=== PATIENT | male | born 2000 | race Caucasian/White ===

== ENCOUNTER 2019-06-07 13:43 | Inpatient (IN) ==
[2019-06-07] MEDS ORDERED: ZOFRAN IM ONE (14:44)
[2019-06-07] MEDS ORDERED: NS 1,000 ML IV ONE ×2 (14:44→16:32)
--- NOTE | 2019-06-07 14:44 | PROVIDER DOCUMENTATION ---
HPI-Musculoskeletal Pain/Inj - GENERAL Chief Complaint: Extremity Injury Stated Complaint: EDEMA/LT LEG Time Seen by Provider: 06/07/19 14:34 Source: patient, family - HX OF PRESENT ILLNESS-MUSKULOSKELTAL Nature of Presenting Problem: 18 YO male presents with left knee pain and fever x 2 days. Pt states 8 days ago he fell on a rock on his left knee. Had a puncture wound which he kept clean and dry. He noticed increasing redness and pain and 2 days ago went to the hospital after he noticed it wasn't getting better. He was started on Cipro and Clindamycin. He states he was unable to take any antibiotics today due to his stomach being upset. He has had fever and chills x 2 days. His last tetanus shot was 3 years ago when he injured his hand. Pain scale 8/10 currently, throbbing pain. Allergy to lidocaine. Quality of Pain: reports: aching Severity in ED: moderate Onset/Duration: last week Timing: still present Modifying Factors: improves with: nothing. worse with: other medication Any recent injury?: Yes Locality of Occurance: Home Similar Symptoms Previously?: No Recently seen or treated by another doctor?: Yes (went to the hospital, started on PO clinda and cipro) Review of Systems - Adult - REVIEW OF SYSTEMS - ADULT Constitutional: reports: see HPI, chills, fever, fatique Eyes: reports: no symptoms reported Ears, Nose, Mouth & Throat: reports: no symptoms reported Cardiovascular: reports: no symptoms reported Respiratory: reports: no symptoms reported Gastrointestinal: reports: see HPI, abdominal pain, nausea, poor appetite Genitourinary: reports: no symptoms reported Musculoskeletal: reports: see HPI, joint pain, joint swelling Integumentary: reports: see HPI Psychiatric: reports: no symptoms reported Endocrine: reports: no symptoms reported Hematologic/Lymphatic: reports: no symptoms reported Allergic/Immunologic: reports: no symptoms reported Past History - Adult - PAST MEDICAL HISTORY-ADULT Review of Records: reports: Old Records Reviewed, Nursing Assessment Review, Medications Reviewed, Social history reviewed & non-contributory. Major Childhood Illnesses: reports: denies history Cardiovascular: reports: denies history Respiratory: reports: denies history Gastrointestinal: reports: denies history Obstetrical/Gynecological: reports: denies history Genitourinary: reports: denies history Musculoskeletal: reports: denies history Neurological: reports: denies history Psychiatric: reports: denies history Endocrine/Immune: reports: denies history Other Conditions: reports: denies history - IMMUNIZATION STATUS Childhood Immunizations: See Nurse Assessment Flu Vaccine: See Nurse Assessment - FAMILY HISTORY Family History: reviewed, not pertinent Physical Exam-Injury Related - Physical Exam-Injury Related Initial Vital Signs Reviewed: Yes (tachycardic and febrile) General Appearance: mild distress (appears ill) Eyes: PERRL/EOMI, pink conjunctivae Head, Ears, Nose, Mouth & Throat: normocephalic/atraumatic, moist mucous membranes Neck: non-tender, full range of motion, supple, normal inspection Respiratory: chest non-tender, lungs clear, normal breath sounds, no respiratory distress Cardiovascular: normal peripheral pulses, tachycardia Peripheral Pulses: dorsalis-pedis (R): 2+, dorsalis-pedis (L): 2+ Abdominal Exam: normal bowel sounds, non tender, soft Extremity: normal range of motion, erythema, inflammation, swelling, tenderness (left knee with 1.5 cm laceration to patellar region with erythema surrounding knee, warm to touch) Integumentary: erythema (of left knee), swelling, tenderness, warm Neurologic: grossly normal Psych/Mental Status: normal mood/affect Progress - PLAN OF CARE/RESULTS Progress/Plan/Lab Results: left knee cellulitis, tachycardia, fever Result Diagrams: 06/07/19 14:30 06/07/19 14:30 - REASSESSMENT Reassessment #1 Time Reassessed: 16:30 Status: unchanged (left knee cellulitis, pt received rocephin, waiting on vanc. pt remains tachycardic s/p 1 L fluids, will give another liter. Pt accepted by hospitalist, Dr. Owens. Pt states still in pain, will give another dose of morphine plus tylenol PO.) - XRAY 1 XRAY: Left XRAY Study: Knee (EXAM: KNEE 1-2 VIEWS-LEFT 06/07/2019 HISTORY: left knee injury/puncture wound TECHNIQUE: Left knee two views COMMENT: There is soft tissue swelling superficially on the lateral aspect of the knee. There is no evidence of acute fracture or dislocation. There is also soft tissue swelling anterior to the patella. IMPRESSION: Soft tissue swelling. No evidence of acute bony disease. No evidence of radiopaque foreign body. Electronically signed by Young Mckeon 06/07/2019 3:44 PM) - CONSULTS/PCP/HOSPITALIST Notification Time Discussed: 16:33 Consult Disposition: Will see in ED (Accepted by Dr. Owens) Departure - Departure Date of Disposition Decision: 06/07/19 Time of Disposition Decision: 16:34 DIAGNOSIS: Cellulitis of left knee, Tachycardia, Fever and chills, Left knee injury Disposition: ADMITTED INPATIENT 09 Certified Medical Emergency: Emergent Condition: Fair - Critical Care Note This patient required my direct & personal management of CC.: No Attestation - Physician/ FADY Attestation The physician spent face to face time with patient:: Yes Advanced Practice Provider documentation review:: Supervising physician onsite a nd consulted in the evaluation and care of this patient. The physician did have a face to face encounter with the patient.
[2019-06-07] MEDS ORDERED: MORPHINE IV ONE ×2 (14:45→16:32)
[2019-06-07] MEDS ORDERED: ROCEPHIN 2 GM in NS 50 ML IV ONE (14:59)
[2019-06-07] MEDS ORDERED: VANCOMYCIN IV PER PHARMACY MISC SCH (15:00)
[2019-06-07 15:26] LABS: BASO# 0.01 X1000 (0.0-0.2); BASO% 0.1 % (0.0-0.8); EOS# 0.01 X1000 (0.0-0.7); EOS% 0.1 % (0.0-10.0); HEMATOCRIT 37.2 % (42.0-52.0); HEMOGLOBIN 12.7 g/dL (14.0-18.0); LYMPH# 0.78 X1000 (1.2-3.4); LYMPH% 5.2 % (20.5-51.1); MCH 28.5 PG (27-31); MCHC 34.1 g/dL (33-37); MCV 83.6 FL (81-99); MONO# 0.83 X1000 (0.11-0.59); MONO% 5.5 % (1.7-9.3); MPV 9.8 FL (7.4-10.4); NEUT# 13.49 X1000 (1.4-6.5); NEUT% 89.1 % (42.2-75.2); PLT 327 X1000 (130-400); RBC 4.45 XMIL (4.7-6.1); RDW 11.9 % (11.5-14.5); WBC 15.12 X1000 (4.8-10.8)
--- NOTE | 2019-06-07 15:47 | Diag Imaging Result Doc PS360 ---
EXAM: KNEE 1-2 VIEWS-LEFT 06/07/2019 HISTORY: left knee injury/puncture wound TECHNIQUE: Left knee two views COMMENT: There is soft tissue swelling superficially on the lateral aspect of the knee. There is no evidence of acute fracture or dislocation. There is also soft tissue swelling anterior to the patella. IMPRESSION: Soft tissue swelling. No evidence of acute bony disease. No evidence of radiopaque foreign body. Electronically signed by Young Mckeon 06/07/2019 3:44 PM
[2019-06-07 15:49] LABS: AGAP 12; ALB/GLOB RATIO 1.3; ALKALINE PHOSPHATASE 110 U/L (32-122); BUN 9 mg/dL (8-22); CALCIUM 9.4 mg/dL (8.8-10.2); CHLORIDE 92 mmol/L (98-107); COSMO 259; CREATININE 1.1 mg/dL (0.7-1.2); ESTIMATED GFR > 60; GLUCOSE 95 mg/dL (70-104); GOT 21 U/L (10-34); GPT 29 U/L (10-44); POTASSIUM 3.7 mmol/L (3.5-5.1); SODIUM 130 mmol/L (136-145); TCO2 26 mmol/L (25-35); TOTAL BILIRUBIN 0.95 mg/dL (0.20-1.00); TOTAL PROTEIN 7.1 g/dL (6.3-8.3)
[2019-06-07 16:23] LABS: INR 1.14; PROTIME 14.8 Seconds (11.0-16.0)
[2019-06-07] MEDS ORDERED: TYLENOL PO ONE (16:32)
[2019-06-07] MEDS: VANCOMYCIN 2,150 MG in NS 500 ML IV ONE ×2 (17:23→18:30)
--- NOTE | 2019-06-07 17:46 | HISTORY AND PHYSICAL ---
PRIMARY CARE PHYSICIAN: Dr. Mcghee. CHIEF COMPLAINT: Left knee pain with fever and chills for the past 2 days, has progressively worsened despite being on antibiotics of Cipro and clindamycin. HISTORY OF PRESENTING ILLNESS: This is a 18-year-old male who presents to [facility] with complaints of left knee pain with fever and chills for the past 2 days that has progressively worsened. States that approximately 8 days ago he was outside and fell on a rock and obtained a puncture wound to his left knee. He was seen in the emergency room about 2 days ago and placed on Cipro and clindamycin, but continued to worsen despite that. So, when he arrived to the emergency room today he had a fever of 103. He had a puncture to the left outer knee with warmth, edema, and some erythema. So he will be admitted for further evaluation and treatment for failed outpatient treatment. PAST MEDICAL HISTORY: None. PAST SURGICAL HISTORY: None. FAMILY HISTORY: Reviewed and noncontributory. SOCIAL HISTORY: He currently lives with family. Denies any tobacco, alcohol or illicit drug use. ALLERGIES: Lidocaine. HOME MEDICATIONS: He does not take any medications on a routine basis, but he was taking the Cipro and clindamycin p.o., that will be held at this time. LABORATORY DATA: Showed a white blood cell count of 15.12, hemoglobin 12.7, hematocrit 37.2, platelets of 327,000. PT and INR of 14.8 and 1.14. Sodium of 130, potassium 3.7, chloride 92, CO2 26, BUN of 9, creatinine 1.1, glucose 95. Plasma lactate was 1.3. X-ray of left knee showed soft tissue swelling. No evidence of acute bony disease. No evidence of radiopaque foreign body. REVIEW OF SYSTEMS: He was positive for fever, chills. Denied any blurred vision, dizziness, chest pain, coughing, shortness of breath. Denied any abdominal pain, constipation, diarrhea, burning or hurting with urination. He did have pain to his left knee with movement, erythema, edema, warmth to touch. PHYSICAL EXAMINATION: VITAL SIGNS: On arrival he had a temperature of 103 degrees, pulse 124, respirations 22, blood pressure 132/70, saturating 100% on room air. GENERAL: This is a 18-year-old male who is lying in the bed and answers questions appropriately. HENT: Normocephalic, atraumatic. Normal ENT inspection. Oropharynx and nares are clear. EYES: Pupils are equal, round, reactive to light and accommodation. Extraocular movements are intact. NECK: Normal inspection. Normal range of motion. LUNGS: Clear to auscultation bilaterally with equal lung expansion and chest wall movement. HEART: With regular rate and rhythm. No murmurs, rubs, or gallops. ABDOMEN: Soft, nontender, nondistended. Bowel sounds are present x4 quadrants. MUSCULOSKELETAL: He has 5/5 strength x4 extremities. He is noted on his left knee to have a puncture wound about 1.5 cm to the patellar region with surrounding erythema, edema, and warmth to touch down to the middle part of his left gay. NEUROLOGICAL: The cranial nerves 2-12 appear grossly intact. ASSESSMENT: 1. Left knee cellulitis with failed outpatient treatment. 2. Leukocytosis. 3. Hyponatremia. 4. Fever. 5. Tachycardia. 6. Sepsis. PLAN: He will be admitted to the surgical unit placed, held NPO, and placed on vancomycin per pharmacy protocol. We will consult Orthopedics. We will recheck a CBC, BMP in the a.m. We will place him on normal saline at 75 mL an hour. Further orders after seen by attending and data warehouse consultant. Dictated by JORGE Mcgrath for Diogenes Carroll MD cc: JORGE Mcgrath MD David Francis, MD
--- NOTE | 2019-06-07 18:05 | HISTORY AND PHYSICAL ---
CHIEF COMPLAINT: Increasing pain and swelling in his leg. This is a 18-year-old male, no medical problems, who came in for evaluation. He had swelling 8 days ago. He has been on Keflex, but has not improved. There is also stating that he had been on Cipro, but he had been on a decent dose of clindamycin 300 q.6 h., but worsening pain, swelling. I am afraid at this time he may have some septic arthritis. His puncture wound is right below his patella., As far as we can tell, there is not any clear abscess and he has drainage that is serosanguineous. That has been cultured. We will place on broad-spectrum antibiotics, vancomycin, Zosyn. Rule out DVT. Get some imaging and an orthopedic evaluation because he may need treatment. Treat with sepsis protocol and follow. This is a [id number] encounter note with Melissa Vazquez. cc: Diogenes Carroll MD MTDD
--- NOTE | 2019-06-07 18:54 | Diag Imaging Result Doc PS360 ---
EXAM: CT EXT LOWER LEFT W/CON 06/07/2019 HISTORY: swelling /r/ro abscess/foreign body TECHNIQUE: This exam was performed using automated exposure control, adjustment of mA or kV according to patient size, and/or use of iterative reconstruction technique. COMMENT: There is skin thickening and superficial soft tissue swelling primarily over the anterior knee and lower leg. There is some enhancement around the fluid collection anterior to the patella and patellar tendon. This measures 9 x 51 x 43 mm. This may represent an abscess. There are no air bubbles. No radiopaque foreign bodies are demonstrated. IMPRESSION: Superficial soft tissue swelling and edema, possible cellulitis in the left leg with seroma or abscess anterior to the patella. Electronically signed by Young Mckeon 06/07/2019 6:51 PM
[2019-06-07] MEDS: ZOSYN 3.375 GM in NS 50 ML IV SCH (21:18)
[2019-06-07] MEDS: NS 1,000 ML IV SCH (21:18)
[2019-06-07] MEDS: TYLENOL PO PRN (23:48)
[2019-06-08] MEDS: MORPHINE IV PRN ×3 (01:00→15:58)
[2019-06-08] MEDS: ZOFRAN IV PRN ×3 (01:00→20:41)
[2019-06-08] MEDS: ZOSYN 3.375 GM in NS 50 ML IV SCH ×4 (02:44→20:27)
[2019-06-08 04:00] LABS: BASO# 0.02 X1000 (0.0-0.2); BASO% 0.2 % (0.0-0.8); EOS# 0.08 X1000 (0.0-0.7); EOS% 0.7 % (0.0-10.0); HEMATOCRIT 32.3 % (42.0-52.0); IMM GRAN# 0.03 X1000 (0.0-0.04); IMM GRAN% 0.3 % (0.0-0.5); LYMPH# 1.11 X1000 (1.2-3.4); LYMPH% 10.3 % (20.5-51.1); MCH 28.5 PG (27-31); MCHC 34.1 g/dL (33-37); MCV 83.7 FL (81-99); MONO# 0.91 X1000 (0.11-0.59); MONO% 8.5 % (1.7-9.3); MPV 9.2 FL (7.4-10.4); NEUT# 8.58 X1000 (1.4-6.5); PLT 298 X1000 (130-400); RBC 3.86 XMIL (4.7-6.1); RDW 11.8 % (11.5-14.5); WBC 10.73 X1000 (4.8-10.8)
[2019-06-08 04:28] LABS: AGAP 13; ALB/GLOB RATIO 0.8; ALBUMIN 2.8 g/dL (3.5-5.0); ALKALINE PHOSPHATASE 91 U/L (32-122); BUN 8 mg/dL (8-22); CALCIUM 8.8 mg/dL (8.8-10.2); CHLORIDE 103 mmol/L (98-107); COSMO 276; CREATININE 0.9 mg/dL (0.7-1.2); ESTIMATED GFR > 60; GLUCOSE 105 mg/dL (70-104); GOT 17 U/L (10-34); GPT 23 U/L (10-44); POTASSIUM 3.8 mmol/L (3.5-5.1); SODIUM 139 mmol/L (136-145); TCO2 23 mmol/L (25-35); TOTAL BILIRUBIN 0.63 mg/dL (0.20-1.00); TOTAL PROTEIN 6.3 g/dL (6.3-8.3)
[2019-06-08] MEDS: VANCOMYCIN 1,850 MG in NS 500 ML IV SCH ×2 (06:24→17:21)
[2019-06-08] MEDS: NS 1,000 ML IV SCH (07:26)
[2019-06-08] MEDS ORDERED: ZOSYN ONE (08:36)
[2019-06-08] MEDS: PERCOCET-5 PO PRN ×3 (08:57→19:32)
[2019-06-08 09:15] LABS: BODY FLUID SOURCE SYNOVIAL FLUID
[2019-06-08 09:16] LABS: MONOS 38 %; POLYS 62 %; WBC BF 372 /cumm
--- NOTE | 2019-06-08 09:17 | ORTHOPAEDICS CONSULTATION ---
DATE: 06/08/2019 CHIEF COMPLAINT: Left knee pain. HISTORY OF PRESENT ILLNESS: Mr. oCoper is a 18-year-old male, who for about a week and a half has been having this left knee pain. He ended up falling about a week and half ago and landed on gravel cutting this left knee, started getting red around that area. He was put on p.o. antibiotics outpatient. Unfortunately things have gotten worse. He has developed a fever and a lot of swelling and redness down the leg and so he was admitted yesterday for IV antibiotics. His fever had gotten up to 103. Orthopedics was consulted for possible septic knee. PAST MEDICAL HISTORY: None. PAST SURGICAL HISTORY: None. FAMILY HISTORY: Noncontributory. SOCIAL HISTORY: He denies any tobacco or alcohol use. ALLERGIES: Allergies are lidocaine. HOME MEDICATIONS: No regular medications. REVIEW OF SYSTEMS: Positive for this left knee pain. All other systems are essentially negative. PHYSICAL EXAMINATION: General: Well-developed male lying in bed, in no acute distress. Head and Neck: Normocephalic, atraumatic. Respirations: Nonlabored breathing. Cardiovascular: Regular rate. Abdomen: Nondistended. Extremities: Left lower extremity exam does have some erythema really to the whole leg up to the knee, not a lot of erythema to the suprapatellar area of the knee. He does have a puncture site really over the patella anteriorly and is draining a little bit of serosanguineous fluid. He has swelling throughout the leg. He does have good sensation to light touch to the toes and 2+ DP pulse. IMAGING: CT scan of the left leg shows a lot of soft tissue swelling. No fracture seen. ASSESSMENT: 1. Left knee cellulitis. 2. Possible septic knee. PLAN: I discussed with Mr. reed and his family about doing aspiration of the knee to see if his joint is infected they are okay with that. After verbal consent was obtained, the superior lateral aspect of the knee was cleaned with ChloraPrep and allowed to air dry. I then used 18-gauge needle to access the knee. We got about 5 mL of joint fluid out that was clear it was a little bit yellow in color and had a little bit of blood in it. The patient tolerated the procedure well. No complications. We sent it down for cell count, Gram stain, cultures. I think it is more of a cellulitis and I think it is mainly going to be IV antibiotic therapy to get him better. It looks like his white count has improved today we will continue to follow from orthopedic standpoint. If his cell count does show he has a septic knee we can we then wash that out. If it is more than just a cellulitis I said it would be more IV antibiotic treatment driven. cc: Naveen Montes MD
--- NOTE | 2019-06-08 17:17 | PROGRESS NOTE ---
DATE: 06/08/2019 SUBJECTIVE: The patient has no major complaints. OBJECTIVE: Blood pressure is 118/65, heart rate of 85, respiratory rate 18, temperature 98.7 degrees, 100% on room air.Cardiovascular: Regular rate and rhythm. Pulmonary: Bilateral breath sounds clear to auscultation. Gastrointestinal: Soft, nontender, nondistended. Bowel sounds were positive. Extremities: His left leg to me looks a little less red, little less swollen. Drainage is drying up on his leg. He is still having some erythema. PROBLEM LIST: 1. Left leg cellulitis. It does not look like he has got any deep infection or a septic arthritis, but it does look like he has got a fluid collection that may need to be drained based on the CT. We will continue vancomycin and Zosyn. Appreciate Orthopedic input. 2. Sepsis. That appears to be better. We will continue to follow. DISPOSITION: Hopefully, we can get him home soon, once things have completely stabilized. cc: Diogenes Carroll MD
[2019-06-08] MEDS: DILAUDID IV PRN ×3 (17:21→23:29)
[2019-06-09] MEDS: PERCOCET-5 PO PRN ×4 (00:15→20:19)
[2019-06-09] MEDS: ZOSYN 3.375 GM in NS 50 ML IV SCH ×2 (02:22→09:24)
[2019-06-09] MEDS: DILAUDID IV PRN ×7 (02:25→21:57)
[2019-06-09 05:57] LABS: BASO# 0.02 X1000 (0.0-0.2); BASO% 0.3 % (0.0-0.8); EOS# 0.17 X1000 (0.0-0.7); EOS% 2.9 % (0.0-10.0); HEMATOCRIT 32.6 % (42.0-52.0); LYMPH# 1.01 X1000 (1.2-3.4); LYMPH% 17.1 % (20.5-51.1); MCH 28.3 PG (27-31); MCHC 33.7 g/dL (33-37); MCV 83.8 FL (81-99); MONO% 11.8 % (1.7-9.3); MPV 8.7 FL (7.4-10.4); NEUT# 4.01 X1000 (1.4-6.5); NEUT% 67.9 % (42.2-75.2); PLT 382 X1000 (130-400); RBC 3.89 XMIL (4.7-6.1); RDW 11.8 % (11.5-14.5); WBC 5.91 X1000 (4.8-10.8)
[2019-06-09] MEDS: VANCOMYCIN 1,850 MG in NS 500 ML IV SCH ×2 (06:07→19:23)
[2019-06-09] MEDS: LOVENOX SUBQ SCH (06:08)
[2019-06-09] MEDS: TYLENOL PO PRN ×3 (06:20→21:57)
[2019-06-09 06:25] LABS: AGAP 10; BUN 7 mg/dL (8-22); CALCIUM 9.2 mg/dL (8.8-10.2); CHLORIDE 98 mmol/L (98-107); COSMO 270; CREATININE 1.1 mg/dL (0.7-1.2); ESTIMATED GFR > 60; GLUCOSE 92 mg/dL (70-104); POTASSIUM 3.8 mmol/L (3.5-5.1); SODIUM 136 mmol/L (136-145); TCO2 28 mmol/L (25-35)
--- NOTE | 2019-06-09 06:57 | PROGRESS NOTE ---
DATE: 06/09/2019 SUBJECTIVE: Mr. Cooper is lying in bed this morning. Feeling about the same. OBJECTIVE: Left Lower Extremity Examination: Still some erythema down the leg itself and still some swelling but he is able to move the toes well and he actually is able to move his ankle up and down. It is little bit sore but not excruciating. The knee is looking a little better. The erythema does not extend up past the patella. He still has a little bit of drainage out of that anterior puncture wound and it is serosanguineous. Labs: Looking at his synovial fluid that we atul off of his knee, he had 372 white blood cells. I did not see any crystals there. We had his blood counts from this morning. His white count has come down to 5.9 where, on the , it was 15. ASSESSMENT: Left leg cellulitis. PLAN: I discussed with Mr. Cooper that I think things are moving in the right direction. His white count is coming down. His synovial fluid was normal. Gram stain was normal as well. We will give the IV antibiotics longer to work. I think he will start getting better. I also discussed with him that a compression sock could help a lot with pushing that fluid out. He still may be a little bit too painful to do it today but maybe starting tomorrow or the next day, try to get a compression sock on and push a lot of the fluid out. I think that could help a lot. From an orthopedic standpoint, I do not think we need to do any irrigation and debridement or surgery. We will continue to follow. He can be weightbearing as tolerated to the left lower extremity. cc: Naveen Montes MD
--- NOTE | 2019-06-09 08:31 | Extremity Venous Study ---
PROCEDURE NAME: Venous U/S Left Leg - 06/08/2019 PROCEDURE: Left lower extremity venous duplex and color flow imaging study using the Delta ID Vivid E9 ultrasound System with a 9L-D transducer. REFERRING PHYSICIAN: Dr. Carroll. BRICK UNLOADER TENDER: Mandeep Monique RVT. INDICATIONS: Pain and edema left lower extremity. Rule out deep venous thrombosis. FINDINGS: The left common femoral vein and its branches, deep and superficial femoral veins were satisfactorily imaged. They had flow through them and were compressible. Left popliteal vein, deep veins below the left knee were all compressible and had flow through them. The superficial veins of the left lower extremity were compressible throughout their length. INTERPRETATION: No evidence of acute deep or superficial venous thrombosis, left lower extremity. cc: MD Diogenes Gaytan MD
[2019-06-09] MEDS ORDERED: LASIX PO ONE (10:17)
[2019-06-09] MEDS: ZOFRAN IV PRN (13:56)
[2019-06-09] MEDS: ZOSYN 4.5 GM in NS 50 ML IV SCH ×3 (14:19→23:54)
--- NOTE | 2019-06-09 14:43 | INFECTIOUS DISEASE CONSULT REP ---
DATE: 06/09/2019 CONCLUSION: The patient has cellulitis of his left leg which he fell with his knee on the driveway which had rocks on it. The patient's CT of the leg shows findings consistent with cellulitis. There is a either a seroma or abscess anterior to the patella. I think it is a seroma or hematoma because there is a wound in that area and it is draining a sanguinous fluid, but no purulence or odor from the wound. The patient had tetanus immunization 4 years ago. RECOMMENDATIONS: I agree with treating the patient with vancomycin and Zosyn. I have increased the dose of Zosyn to 4.5 gram IV every 6 hours. I think it also would be important for the patient to elevate his legs as much as possible. DISCUSSION: The patient approximately 10 days ago fell on his driveway and there were rocks on the driveway and injured his leg. His leg has become swollen and erythematous and painful. The patient's CBC shows a white count of 5910 hemoglobin 11 and platelet count 382,000. Creatinine is 1.1. GFR is greater than 60. Liver function studies are normal. Dr. Montes aspirated synovial fluid. It has only 372 white cells and was negative for crystals. CT scan of the leg shows soft tissue swelling consistent with cellulitis and anterior to the patella fluid a small fluid collection that could be a seroma or abscess. As mentioned above, I think the fluid is a seroma or hematoma based on the drainage coming from it on his leg which is sanguinous in nature. Patient's blood cultures are negative and cultures from his left knee are also negative. PAST MEDICAL HISTORY/REVIEW OF SYSTEMS: Eyes and ears: His hearing and vision is good. Neck: No stiffness. Respiratory: No cough or shortness of breath. Cardiac: No chest pain or palpitations. GI: The patient has not had a stool in about 5 days. He has lost his appetite and he thinks that is contributing to the fact that he is not passing stool. He is passing his urine okay. : No dysuria or flank pain. Bones joints muscles: See present illness. Neurologic: No seizures no loss of motor or sensory function except for the possibility of some problem with his leg due to the fall. PREVIOUS HOSPITALIZATIONS AND OPERATIONS: He has had tonsillectomy. MEDICAL DISEASES: Negative for diabetes and hypertension. INFECTIOUS DISEASE HISTORY: Negative for pneumonia and UTI. Patient had tetanus immunization 4 years ago. FAMILY HISTORY: Positive for hypertension, stroke and cancer. 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 He has dogs for pets. He occasionally drinks beer. He does not smoke cigarettes or abuse drugs. MEDICATIONS: Taken at home: The patient was taking clindamycin and hydrocodone. PHYSICAL EXAMINATION: Vital Signs: Temperature is 98.2 degrees, pulse 74, respirations 20, blood pressure 116/58. The patient weighs 206 pounds. General: This is a healthy- appearing, young male. He is in no acute distress. Head/eyes/ears/nose/throat: He can hear my spoken words and see near objects. No drainage noted from the nose or ears. He does not have any white patches on his tongue. Neck: No meningismus. Lungs: Clear to auscultation. Cardiovascular: Regular heart rate. Abdomen: Soft and nontender. Extremities: Left leg is swollen and erythematous. It does have a small wound area anterior to the patella which is draining a serosanguineous fluid. Neurologic: Patient is alert. He can move his extremities. There is no tremor. Sensation is intact to touch. The patient's memory as regarding his medical history was intact. Thank you for the consult. cc: Leno Plata MD MTDKelly
--- NOTE | 2019-06-09 17:13 | PROGRESS NOTE ---
DATE: 06/09/2019 SUBJECTIVE: Patient has no major complaints. He is kind of lying in bed, just upset. OBJECTIVE: He describes he had a fever up to 101 and 100 overnight, but his vital signs show T- max was a 100.3 degrees. I do not see any fevers. He does have some redness and swelling in his left leg, although to me it is less swollen. There is more erythema kind reaching down to his ankle, but it is overall to me improved. There is less redness. LABORATORY DATA: White count is 5. Hemoglobin and hematocrit 11 and 32. Platelets 382,000. Basic was normal. PROBLEM LIST: Left leg cellulitis with cultures that are negative. I think on entire workup is doing okay. There questionable some fluid collection, but that seems like it is draining although it is not actively draining now. Cultures from it are negative. Blood cultures are negative. He is on vancomycin and Zosyn. I have asked Dr. Plata to evaluate the patient. He feels patient will need IV antibiotics and keep his legs elevated. So, I think tomorrow we can put him on a PICC and do IV antibiotics at home. There is no evidence of septic arthritis. This is just going to take its course, and we will continue to follow. Dr. Plata feels like the fluid collection is not an abscess and clinically he is certainly improved. So, anticipate discharge tomorrow if stable. cc: Diogenes Carroll MD
[2019-06-10] MEDS: PERCOCET-5 PO PRN ×4 (00:42→21:11)
[2019-06-10] MEDS: DILAUDID IV PRN ×3 (02:18→18:34)
[2019-06-10 06:31] LABS: INR 1.08; PROTIME 14.1 Seconds (11.0-16.0)
[2019-06-10] MEDS: ZOSYN 4.5 GM in NS 50 ML IV SCH (06:37)
[2019-06-10] MEDS: LOVENOX SUBQ SCH (06:37)
[2019-06-10] MEDS: VANCOMYCIN 1,850 MG in NS 500 ML IV SCH ×2 (06:43→18:28)
[2019-06-10 06:47] LABS: BASO# 0.02 X1000 (0.0-0.2); BASO% 0.3 % (0.0-0.8); EOS# 0.19 X1000 (0.0-0.7); EOS% 3.1 % (0.0-10.0); HEMATOCRIT 37.8 % (42.0-52.0); HEMOGLOBIN 12.8 g/dL (14.0-18.0); IMM GRAN# 0.03 X1000 (0.0-0.04); IMM GRAN% 0.5 % (0.0-0.5); LYMPH# 0.73 X1000 (1.2-3.4); MCH 28.2 PG (27-31); MCHC 33.9 g/dL (33-37); MCV 83.3 FL (81-99); MONO# 0.63 X1000 (0.11-0.59); MONO% 10.4 % (1.7-9.3); MPV 8.9 FL (7.4-10.4); NEUT# 4.46 X1000 (1.4-6.5); NEUT% 73.7 % (42.2-75.2); PLT 473 X1000 (130-400); RBC 4.54 XMIL (4.7-6.1); RDW 11.9 % (11.5-14.5); WBC 6.06 X1000 (4.8-10.8)
[2019-06-10] MEDS ORDERED: NS 250 ML ONE (08:24)
[2019-06-10] MEDS ORDERED: ZOSYN 4.5 GM in NS 50 ML IV SCH (08:45)
[2019-06-10] MEDS ORDERED: ZOSYN 4.5 GM in NS 100 ML IV SCH (08:45)
[2019-06-10] MEDS: LASIX PO SCH (09:06)
[2019-06-10] MEDS: MAXIPIME 2 GM in NS 100 ML IV SCH (15:12)
--- NOTE | 2019-06-10 18:54 | PROGRESS NOTE ---
DATE: 06/10/2019 SUBJECTIVE: Patient looks better. His leg to me looks better, less erythema, less swelling. He just looks better. It is not extending as much. OBJECTIVE: Vital Signs: Blood pressure 126/62, heart rate of 85, respiratory rate of 20, temperature was 98.4 degrees, and 98% on room air. Cardiovascular: Regular rate and rhythm. Pulmonary: Bilateral breath sounds, clear to auscultation. Gastrointestinal: Soft, nontender, nondistended. Bowel sounds are positive. DIAGNOSTIC DATA: White count 6, hemoglobin and hematocrit of 12 and 37, platelets 473,000. Micro still completely normal. PROBLEM LIST: 1. Left leg cellulitis. We will continue IV antibiotics per Dr. Plata. He is arranging home IV therapy. I have gone ahead and put the IV PICC. The only thing I am a little concerned about is a persistence and fever. He had a 101.9 temperature yesterday. If he still has temperature, I would consider pushing possibly a drain in that small area fluid collection, although it is actively draining again when it had not been draining previously, so that is an improvement. cc: Diogenes Carroll MD
--- NOTE | 2019-06-10 19:41 | INFECTIOUS DISEASE PROGRESS NO ---
DATE: 06/10/2019 PRESENT ILLNESS: Mr. Cooper is being treated for a left lower extremity cellulitis after a fall on his left knee. He has had a subsequent fever and leukocytosis with a temperature spike last night of 101.9. MEDICATIONS: He has been receiving IV vancomycin per pharmacy dosing as well as Zosyn 4.5 g IV every 6 hours. PHYSICAL EXAMINATION: Vital Signs: Temperature is 98.6 degrees, pulse rate 86, respiratory rate 18, blood pressure 128/71. O2 saturation is 96% on room air. General: This is a fairly healthy- appearing young man, lying in bed, currently in no acute distress. HEENT: Atraumatic, normocephalic. Oral mucous membranes are pink and moist. Conjunctivae are pink. Neck: Supple. Trachea is midline. Cardiovascular: Heart rate is regular. No murmurs or gallops noted. Respiratory: Lung sounds are clear to auscultation bilaterally with no work of breathing noted. Abdomen: Soft, round, and nontender. Bowel sounds are active. Neurologic: He is awake, alert, oriented, and able to get up and around with assistance. Integumentary: He has a PICC line in place to the right upper arm w/o edema, erythema or drainage to the stie. There is a wound to the left knee with a beefy red wound bed and some mild sanguinous drainage. The left lower extremity is edematous with erythema and darkened areas noted to the left calf and down to the medial ankle. LABORATORY AND X-RAY: Today his white count is 6.06. Hemoglobin 12.8. Platelet count 473,000. No electrolytes drawn today. At this point, the left knee has shown no growth on the culture however this is the preliminary report. Final anaerobic culture shows no anaerobe. No imaging reports today. ASSESSMENT AND PLAN: Mr. Cooper is being treated for left lower extremity cellulitis and is being covered with broad-spectrum antibiotics using vancomycin and Zosyn. At this point, we will discontinue the Zosyn and start him on cefepime 2 g IV every 12 hours. He has had a PICC line put in and we will plan on sending him home once he has been afebrile for 24 hours. [facility] has been consulted to provide home IV antibiotics and they have told me that he has 100% coverage. He will need 2 weeks of antibiotics to start with, after which time we will see him in the office and determine the further course of action. We have talked to him and his parents at length about the plan. We have also discussed the possible side effects of the medications which include rash, diarrhea, ricki and renal toxicity as well as oral candidiasis and fungal rash. They have been told to report any these to our office after discharge. These plans have been discussed with and recommended by Dr. Plata. COMORBIDITIES: No significant comorbidities noted. Dictated by JORGE Gillette for Leno Plata MD cc: Leno Plata MD MTDD
[2019-06-11] MEDS: DILAUDID IV PRN (00:18)
[2019-06-11] MEDS: MAXIPIME 2 GM in NS 100 ML IV SCH (03:17)
[2019-06-11] MEDS: VANCOMYCIN 1,850 MG in NS 500 ML IV SCH (05:31)
[2019-06-11] MEDS: LOVENOX SUBQ SCH (05:31)
[2019-06-11 07:59] VITALS: BP 107/61
[2019-06-11] MEDS: LASIX PO SCH (08:42)
--- NOTE | 2019-06-11 08:42 | ORTHOPAEDICS PROGRESS NOTE ---
DATE: 06/11/2019 SUBJECTIVE: Mr. Cooper is lying in bed this morning. Overall, he says his pain seems a lot better. OBJECTIVE: Left lower extremity: He still has a little bit of drainage out of that anterior puncture wound at the knee but the leg itself looks a lot better. He does not have near as much swelling. His erythema is coming down. His calf is soft now. ASSESSMENT: Left lower extremity cellulitis and prepatellar bursitis. PLAN: I think Mr. Cooper is making progress. He is going to go home on IV antibiotics. He has a PICC already. It does look like that anterior wound is draining. I would not recommend a formal irrigation debridement in the OR at this point. The knee aspiration all came back for no growth so I think this is more of a soft tissue infection. I would like for him to follow with me in 1 week in clinic and we will continue to follow along as well. cc: Naveen Montes MD
--- NOTE | 2019-06-11 20:01 | DISCHARGE SUMMARY ---
ADMISSION DATE: 06/07/2019 DISCHARGE DATE: 06/11/2019 DISCHARGE DIAGNOSES: Left leg cellulitis status post trauma to his knee with cultures negative. CONSULTATIONS: 1. Dr. Montes, Orthopedics. 2. Dr. Plata. PROCEDURES: PICC line placement. DISCHARGE DIAGNOSES: Left lower extremity cellulitis with early abscess and then rule out septic arthritis. HOSPITAL COURSE: This is a 18-year-old male who fell and hit his leg on a rock and had a penetrating injury. He developed cellulitis and he was placed on reportedly Cipro and clindamycin, but did not improve. He came in for evaluation. There was some concern over abscess formation. He had some fluid collection around the patella inferior to it. Venous Dopplers were negative. Ortho was consulted and felt that this was just a cellulitis of the leg and not abscess formation. He did do an arthrocentesis to get fluid, but there was no evidence of septic arthritis. Slowly but surely with IV antibiotics he improved. He did have persistent fevers for the first couple days through the , so we monitored him. He has been on vancomycin and Zosyn. Dr. Plata was consulted and he felt that the patient needed IV vancomycin and Zosyn for another 2 weeks. He had a little bit of fever, so we observed him for another day, but he was much improved. DISCHARGE RECOMMENDATIONS: His discharge recommendations were cefepime 2 g IV q. 12 and I guess maybe also vancomycin although I am not 100% sure. But we gave him a p.r.n. dose of Lasix and then [place] 10. He has had no fevers for 24 hours. White count had resolved. All cultures were negative. But he was felt stable for discharge on the . DISCHARGE CONDITION: Stable. FOLLOWUP: Follow with Dr. Montes in a week. Follow up with Dr. Mcghee and Dr. Plata in 1 to 2 weeks. Return for worsening pain or swelling. cc: Diogenes Carroll MD
== END 2019-06-11 12:00 | disposition home health service (06) | DRG 872 ==
LOC: ED 13:43 → 4N 13:44
PROVIDERS: ATTEND Internal Medicine